=== PATIENT | female | born 1990 | race Caucasian/White ===

== ENCOUNTER 2018-01-11 03:48 | Inpatient (IN) | payer BC ==
[2018-01-11] MEDS ORDERED: Penicillin G Potassium 5 MILL.UNITS in Sodium Chloride 0.9% 100 ML IVPB SCH (04:10)
[2018-01-11] MEDS ORDERED: Ibuprofen 800 MG TAB PO PRN (04:10)
[2018-01-11] MEDS ORDERED: Promethazine HCl 25 MG/ML VIAL IM PRN ×2 (04:10→09:12)
[2018-01-11] MEDS ORDERED: Acetaminophen 500 MG TAB PO PRN (04:10)
[2018-01-11] MEDS ORDERED: Docusate 100 MG CAP PO PRN (04:10)
[2018-01-11] MEDS ORDERED: NS w/ Oxytocin 10 units 500 ML IV SCH (04:10)
[2018-01-11] MEDS ORDERED: HYDROcodone/Acetaminophen 5/325 mg Tablet PO PRN ×2 (04:10)
[2018-01-11] MEDS ORDERED: NS / Oxytocin 40 units/1000ml 1,000 ML IV PRN (04:10)
[2018-01-11] MEDS ORDERED: Butorphanol Tartrate 1 MG/ML VIAL SLOW IVP PRN (04:10)
[2018-01-11] MEDS ORDERED: Diphenoxylate HCl/Atropine Tablet PO PRN ×2 (04:10)
[2018-01-11] MEDS ORDERED: Misoprostol 200 MCG TAB PR PRN (04:10)
[2018-01-11] MEDS ORDERED: Lidocaine 1% (PF) 30 ML VIAL SC PRN (04:10)
[2018-01-11] MEDS ORDERED: Ondansetron HCl/PF 4 MG/2 ML Vial IVP PRN ×3 (04:10→19:49)
[2018-01-11 04:22] VITALS: BMI 26.7
[2018-01-11] MEDS: Lactated Ringer's 1,000 ML IV SCH ×3 (04:54→13:33)
[2018-01-11 04:55] LABS: Mean Corpuscular HGB CONC 35.3 g/dL (32.0-36.0); Mean Corpuscular Hemoglobin 30.5 pg (27.0-31.0); Mean Corpuscular Volume 86.4 fL (78.0-98.0); Mean Platelet Volume 8.2 fL (7.4-10.4); Platelet Count 230 thou/uL (130-400); RBC Distribution Width 11.6 % (11.5-14.5); Red Blood Cell (RBC) Count 3.92 mill/uL (4.20-5.40); White Blood Cell (WBC) Count 17.3 thou/uL (4.8-10.8)
[2018-01-11 05:33] LABS: Syphilis Antibody Nonreactive (Nonreactive); Syphilis Antibody Index 0.04 S/CO (<1.00 Non-Reactive)
[2018-01-11 05:34] LABS: HBSAg Index 0.23 S/CO (0-0.99); Hep B Surf Ag Non-Reactive S/CO (NonReactive)
[2018-01-11] MEDS ORDERED: DISCONTINUE ALL PREVIOUS NARCOTICS FS SCH (07:00)
[2018-01-11] MEDS: Bupivacaine 0.5% 20 ML, fentaNYL Citrate/PF 400 MCG in Sodium Chloride 0.9% 72 ML EPIDURAL SCH ×3 (08:19→16:48)
[2018-01-11] MEDS ORDERED: Lactated Ringer's 500 ML IV PRN (09:12)
[2018-01-11] MEDS ORDERED: Eucerin (Mineral Oil/Petrolatum,White) 30 gm Jar TOP PRN (09:12)
[2018-01-11] MEDS ORDERED: Acetaminophen 325 MG TAB PO PRN (09:12)
[2018-01-11] MEDS ORDERED: ePHEDrine/0.9% NaCl/PF SYRINGE 50 mg/10 ml SLOW IVP PRN (09:12)
[2018-01-11] MEDS ORDERED: diphenhydrAMINE 50 MG/ML VIAL IVP PRN (09:12)
[2018-01-11] MEDS ORDERED: Naloxone HCl 0.4 mg/ml Vial IVP PRN ×2 (09:12)
[2018-01-11] MEDS ORDERED: fentaNYL Citrate/PF 400 MCG, Bupivacaine 0.5% 20 ML in Sodium Chloride 0.9% 72 ML EPIDURAL SCH (09:15)
[2018-01-11] MEDS ORDERED: Communication Order-Pharmacy FS SCH (09:15)
[2018-01-11] MEDS: Penicillin G 2.5 MILL.units 2.5 MILL.UNITS in Premix Bag 1 BAG IVPB SCH ×3 (09:44→21:34)
[2018-01-11] MEDS ORDERED: Bupivacaine/Epinephrine 0.25% 30 ML VIAL ONE (11:11)
[2018-01-11] MEDS ORDERED: Ampicillin 2 GM in Sodium Chloride 0.9% 100 ML IVPB SCH (17:00)
[2018-01-11] MEDS ORDERED: Acetaminophen/Codeine 30-300mg Tablet PO PRN ×2 (19:49)
[2018-01-11] MEDS ORDERED: Preparation H Ointment 28 GM TUBE PR PRN (19:49)
[2018-01-11] MEDS ORDERED: Zolpidem Tartrate 5 MG TAB PO PRN (19:49)
[2018-01-11] MEDS ORDERED: diphenhydrAMINE 25 MG CAP PO PRN (19:49)
[2018-01-11] MEDS ORDERED: Milk Of Magnesia 30 ML UDCUP PO PRN (19:49)
[2018-01-11] MEDS ORDERED: Benzocaine/Menthol 20-0.5% 60 ML CAN TOP PRN (19:49)
[2018-01-11] MEDS ORDERED: Lanolin Ointment 7 GM TUBE TOP PRN (19:49)
[2018-01-11] MEDS ORDERED: Bisacodyl 10 MG SUPP PR PRN (19:49)
[2018-01-11] MEDS ORDERED: NS / Oxytocin 40 units/1000ml 1,000 ML IV SCH (20:00)
[2018-01-11] MEDS: Ibuprofen 800 MG TAB PO SCH (23:00)
[2018-01-12] MEDS: Docusate Calcium (SURFAK) 240 MG CAP PO SCH ×3 (01:29→21:48)
[2018-01-12] MEDS: Ibuprofen 800 MG TAB PO SCH ×3 (05:57→21:48)
[2018-01-12] MEDS ORDERED: Adacel (T-DAP) 0.5 ML VIAL IM ONE (09:00)
[2018-01-12] MEDS: Prenatal Vitamin 1 TAB PO SCH (09:18)
[2018-01-12] MEDS: Ferrous Sulfate 325 MG TAB PO SCH ×2 (09:19→15:50)
[2018-01-13] MEDS: Prenatal Vitamin 1 TAB PO SCH (08:23)
[2018-01-13] MEDS: Docusate Calcium (SURFAK) 240 MG CAP PO SCH (08:23)
[2018-01-13] MEDS: Ferrous Sulfate 325 MG TAB PO SCH ×2 (08:23→16:33)
[2018-01-13] MEDS: Ibuprofen 800 MG TAB PO SCH ×2 (08:23→14:22)
[2018-01-13 16:35] VITALS: BP 102/60; TEMP 98.7
== END 2018-01-13 18:15 | disposition home or self-care (01) | DRG 775 ==
LOC: L&D 03:48 → 3SW 22:01
PROVIDERS: ADMIT Obstetrics & Gynecology; ATTEND Obstetrics & Gynecology
PROC: 10D07Z6 Extraction of Products of Conception, Vacuum, Via Natural or Artificial Opening (ICD-10-PCS; principal; 2018-01-11)
PROC: 3E033VJ Introduction of Other Hormone into Peripheral Vein, Percutaneous Approach (ICD-10-PCS; 2018-01-11)
PROC: 0W8NXZZ Division of Female Perineum, External Approach (ICD-10-PCS; 2018-01-11)
PROC: 10907ZC Drainage of Amniotic Fluid, Therapeutic from Products of Conception, Via Natural or Artificial Opening (ICD-10-PCS; 2018-01-11)
DX: O99.824 Streptococcus B carrier state complicating childbirth (principal); Z37.0 Single live birth; Z3A.39 39 weeks gestation of pregnancy; O77.0 Labor and delivery complicated by meconium in amniotic fluid; O70.1 Second degree perineal laceration during delivery; O66.0 Obstructed labor due to shoulder dystocia
CPT/HCPCS: 36415; 51702; 85027; 85461; 86780; 86850; 86900; 86901; 87340; 90384; 96372; 99285; J0290; J2001; J2540; J3010; J3490; J7050

== ENCOUNTER → 2018-01-14 | Day surgery (SDC) | payer BC | LOC: ERS 10:28 → SDC/OP 19:14 | PROVIDERS: ATTEND Anesthesiology | DX: G97.1 Other reaction to spinal and lumbar puncture (principal) | CPT/HCPCS: 99285 ==

== ENCOUNTER 2019-12-08 09:34 | Outpatient (CLI) | payer BC, OTHER ==
[2019-12-09 12:22] LABS: SARS-CoV-2 MS2 Positive; SARS-CoV-2 N Gene Negative; SARS-CoV-2 S Gene Negative; SARS-CoV-2 orf1ab Negative
== END 2019-12-08 09:35 | disposition home or self-care (01) ==
LOC: LABSCS 09:34
PROVIDERS: ATTEND Obstetrics & Gynecology
DX: Z11.59 Encounter for screening for other viral diseases (principal)
CPT/HCPCS: 87635; U0003

== ENCOUNTER 2019-12-10 13:45 | Inpatient (IN) | payer BC, OTHER ==
[2019-12-11] MEDS ORDERED: Lidocaine 2% MPF 10 ML AMP (For Epidural Use) ONE (08:37)
[2019-12-11] MEDS ORDERED: Bupivacaine 0.25% HCL 30 ML VIAL ONE (08:37)
[2019-12-11] MEDS ORDERED: Bupivacaine PF 0.5% 30 ML VIAL ONE (08:37)
[2019-12-11] MEDS ORDERED: Bupivacaine/Epinephrine 0.25% 30 ML VIAL ONE (08:37)
[2019-12-11 10:00] VITALS: BMI 25.9
[2019-12-11] MEDS ORDERED: Butorphanol Tartrate 1 MG/ML VIAL SLOW IVP PRN (10:09)
[2019-12-11] MEDS ORDERED: Promethazine HCl 25 MG/ML VIAL IM PRN ×2 (10:09→15:12)
[2019-12-11] MEDS ORDERED: Ibuprofen 800 MG TAB PO PRN (10:09)
[2019-12-11] MEDS ORDERED: Zolpidem Tartrate 5 MG TAB PO PRN (10:09)
[2019-12-11] MEDS ORDERED: HYDROcodone/Acetaminophen 5/325 mg Tablet PO PRN ×2 (10:09)
[2019-12-11] MEDS ORDERED: hydrALAZINE 20 MG/ML VIAL SLOW IVP PRN (10:09)
[2019-12-11] MEDS ORDERED: NS w/ Oxytocin 10 units 500 ML IV SCH ×2 (10:09)
[2019-12-11] MEDS ORDERED: Acetaminophen 500 MG TAB PO PRN (10:09)
[2019-12-11] MEDS ORDERED: Misoprostol 200 MCG TAB PR PRN (10:09)
[2019-12-11] MEDS ORDERED: Docusate 100 MG CAP PO PRN (10:09)
[2019-12-11] MEDS ORDERED: Lidocaine 1% (PF) 30 ML VIAL SC PRN (10:09)
[2019-12-11] MEDS ORDERED: Ondansetron PF 4 MG/2 ML Vial IVP PRN ×2 (10:09→15:12)
[2019-12-11] MEDS ORDERED: Diphenoxylate HCl/Atropine Tablet PO PRN ×2 (10:09)
[2019-12-11 10:18] LABS: Hemoglobin 10.6 g/dL (12.0-16.0); Mean Corpuscular HGB CONC 33.5 g/dL (32.0-36.0); Mean Corpuscular Hemoglobin 27.9 pg (27.0-31.0); Mean Corpuscular Volume 83.3 fL (78.0-98.0); Mean Platelet Volume 8.4 fL (7.4-10.4); Platelet Count 249 thou/uL (130-400); RBC Distribution Width 11.8 % (11.5-14.5); Red Blood Cell (RBC) Count 3.81 mill/uL (4.20-5.40); White Blood Cell (WBC) Count 11.9 thou/uL (4.8-10.8)
[2019-12-11 11:00] LABS: HBSAg Index 0.13 S/CO (0-0.99); Hep B Surf Ag Non-Reactive S/CO (NonReactive); Syphilis Antibody Nonreactive (Nonreactive); Syphilis Antibody Index 0.03 S/CO (<1.00 Non-Reactive)
[2019-12-11] MEDS: Lactated Ringer's 1,000 ML IV SCH ×2 (13:48→23:48)
[2019-12-11] MEDS ORDERED: Fentanyl 4 mcg/Bup 0.1% Cadd 100 ML ONE ×2 (14:26→21:23)
[2019-12-11] MEDS: Misoprostol 100 MCG TAB VAG SCH ×3 (14:52→23:48)
[2019-12-11] MEDS ORDERED: Naloxone HCl 0.4 mg/ml Vial IVP PRN ×2 (15:12)
[2019-12-11] MEDS ORDERED: EPHEDRINE 25 MG/5 ML SYRINGE SLOW IVP PRN (15:12)
[2019-12-11] MEDS ORDERED: Acetaminophen 325 MG TAB PO PRN (15:12)
[2019-12-11] MEDS ORDERED: Lactated Ringer's 500 ML IV PRN (15:12)
[2019-12-11] MEDS ORDERED: diphenhydrAMINE 50 MG/ML VIAL IVP PRN (15:12)
[2019-12-11] MEDS ORDERED: Communication Order-Pharmacy FS SCH (15:15)
[2019-12-11] MEDS ORDERED: Fentanyl 4 mcg/Bupivacaine 0.1% Cassette 100 ML EPIDURAL SCH (15:15)
[2019-12-12] MEDS: NS / Oxytocin 40 units/1000ml 1,000 ML IV PRN ×2 (01:11→01:49)
[2019-12-12] MEDS ORDERED: Milk Of Magnesia 30 ML UDCUP PO PRN (02:22)
[2019-12-12] MEDS ORDERED: Lanolin Ointment 7 GM TUBE TOP PRN (02:22)
[2019-12-12] MEDS ORDERED: Bisacodyl 10 MG SUPP PR PRN (02:22)
[2019-12-12] MEDS ORDERED: hydrALAZINE 20 MG/ML VIAL SLOW IVP PRN (02:22)
[2019-12-12] MEDS ORDERED: Benzocaine-Menthol 82.5 ML CAN TOP PRN (02:22)
[2019-12-12] MEDS ORDERED: HYDROcodone/Acetaminophen 5/325 mg Tablet PO PRN (02:22)
[2019-12-12] MEDS ORDERED: diphenhydrAMINE 25 MG CAP PO PRN (02:22)
[2019-12-12] MEDS ORDERED: Zolpidem Tartrate 5 MG TAB PO PRN (02:22)
[2019-12-12] MEDS ORDERED: Misoprostol 200 MCG TAB VAG PRN (02:22)
[2019-12-12] MEDS ORDERED: Ondansetron PF 4 MG/2 ML Vial IVP PRN (02:22)
[2019-12-12] MEDS ORDERED: Preparation H Ointment 28 GM TUBE PR PRN (02:22)
[2019-12-12] MEDS ORDERED: NS / Oxytocin 40 units/1000ml 1,000 ML IV SCH (02:30)
[2019-12-12] MEDS: Lactated Ringer's 1,000 ML IV SCH (04:58)
[2019-12-12] MEDS: Misoprostol 100 MCG TAB VAG SCH (04:58)
[2019-12-12] MEDS: Ibuprofen 800 MG TAB PO SCH ×3 (07:07→22:13)
[2019-12-12] MEDS: Ferrous Sulfate 325 MG TAB PO SCH ×2 (08:44→16:57)
[2019-12-12] MEDS: Prenatal Vitamin 1 TAB PO SCH (08:56)
[2019-12-12] MEDS: Docusate Calcium (SURFAK) 240 MG CAP PO SCH ×2 (08:56→22:13)
[2019-12-12] MEDS ORDERED: Adacel (T-DAP) 0.5 ML SYRINGE IM ONE (09:00)
[2019-12-12] MEDS: HYDROcodone/Acetaminophen 5/325 mg Tablet PO PRN (16:31)
[2019-12-13] MEDS: Ibuprofen 800 MG TAB PO SCH ×2 (06:18→14:04)
[2019-12-13] MEDS: Ferrous Sulfate 325 MG TAB PO SCH (08:44)
[2019-12-13 08:46] VITALS: BP 101/52; TEMP 98.3
[2019-12-13] MEDS: Docusate Calcium (SURFAK) 240 MG CAP PO SCH (08:47)
[2019-12-13] MEDS: Prenatal Vitamin 1 TAB PO SCH (08:47)
[2019-12-13] MEDS: HYDROcodone/Acetaminophen 5/325 mg Tablet PO PRN ×2 (10:32→17:00)
== END 2019-12-13 17:49 | disposition home or self-care (01) | DRG 807 ==
LOC: L&D 12-11 09:24 → 3SE 12-12 03:36 → EDSTATUS 12-19 13:44
PROVIDERS: ADMIT Obstetrics & Gynecology; ATTEND Obstetrics & Gynecology
PROC: 3E033VJ Introduction of Other Hormone into Peripheral Vein, Percutaneous Approach (ICD-10-PCS; 2019-12-11)
PROC: 10E0XZZ Delivery of Products of Conception, External Approach (ICD-10-PCS; principal; 2019-12-12)
PROC: 3E0234Z Introduction of Serum, Toxoid and Vaccine into Muscle, Percutaneous Approach (ICD-10-PCS; 2019-12-12)
DX: O99.52 Diseases of the respiratory system complicating childbirth (principal); Z37.0 Single live birth; J45.909 Unspecified asthma, uncomplicated; Z3A.40 40 weeks gestation of pregnancy
CPT/HCPCS: 36415; 85027; 85461; 86780; 86850; 86900; 86901; 87340; 87635; 90384; 96372; J2001; J2405; J2590; S0020; U0003